=== PATIENT | female | born 1950 | race Caucasian/White ===

== ENCOUNTER 2020-07-04 12:27 | Outpatient (CLI) | payer MEDICARE, BC, SELFPAY ==
[2020-07-04 12:42] VITALS: BP 124/76; PULSE 70; RESP 14; TEMP 36.6; O2SAT 99
[2020-07-04] MEDS: Omnipaque 240 MG/ML 50 ML BTL IJ (13:12)
[2020-07-04] MEDS: Bupivacaine 0.5% Pres-Free 10 ML VIAL IJ (13:16)
--- NOTE | 2020-07-04 13:17 | DI.RAD_ITS ---
Exam(s) XR PAIN CLINIC FLUORO JOINT IN EXAM: XR PAIN CLINIC FLUORO JOINT IN CLINICAL HISTORY: Dx: Osteoarthritis of left knee. TECHNIQUE: Fluoroscopy was provided for the referring physician for guidance with performing genicul ar nerve block.. COMPARISON: No exams were available for comparison FINDINGS: Please see procedure note for details. RADIATION DOSE DELIVERED: Donr=1.52 mGy
[2020-07-04 13:20] VITALS: PULSE 78; O2SAT 100
--- NOTE | 2020-07-04 13:56 | PDOC.PAIN_ITS ---
Pain Clinic Procedure Note Procedure Note Procedure Note: LEFT GENICULAR NERVE BLOCK Date of Service: July 04, 2020 Patient: Lucy Avery Provider: Martina Morin MD Pre-operative diagnosis: left knee osteoarthritis Post-operative diagnosis: same as above COMMENTS: Pre-procedure VAS to the LEFT knee is 3/10, increases to moderate pain level with walking, aggravated by increased humidity. 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 Predominant pain localized to medial inferior aspect of the left knee. Lucy Avery has been referred to the [facility] for LEFT genicular nerve block. Lucy was interviewed and the medical record reviewed. There were no medical, pharmacologic, radiographic or other structural contraindications to attempting fluoroscopically guided LEFT genicular nerve block. Risks and potential side effects as well as potential benefit of the procedure were reviewed with Lucy , and HER voiced concerns were addressed. After I believed that the patient was completely informed, the printed consent form was signed. Standard time-out procedure was performed. Lucy was placed in the supine position on the fluoroscopy table and automated blood pressure cuff and pulse oximeter applied. The skin entry points for a pproaching LEFT superolateral genicular nerve, the superomedial genicular nerve and the inferomedial genicular was identified under the most advantageous fluoroscopic view and marked. Following thorough Chlorhexadine preparation of the skin and draping, 1% lidocaine infiltration of the skin entry point and subcutaneous tissues was accomplished using a 1.5 25G needle. Next, the 3.5 25G spinal needle was advanced to os at the location of the specific nerve root using fluoroscopic guidance. Next, 1 cc of 0.5% Bupivocaine was injected at each site. The needles were removed without difficulty. Lucy's vital signs were stable throughout the procedure and were as recorded in the docflowsheet by the nursing staff. If given, dosages of intravenous drugs for anxiolysis and analgesia were documented in MAR. Follow up plans and appointments were discussed with the Lucy . Post procedure instruction was given as documented in nursing documentation and having met discharge criteria, Lucy was discharged from the [facility]. COMMENTS: No complications. Post-procedure VAS to the LEFT knee is 0/10. The patient will keep track of her LEFT knee pain over the next four hours. If Lucy has sufficient pain relief, Godfrey will be a candidate for radiofrequency ablation at the same nerves. Isidoro SawyerJ1, Wilberto SJ, Ilya JG, Claudette JG, Siegel KONG, Park PH, Kohler JW. Radiofrequency treatment relieves chronic knee osteoarthritis pain: a double-blind randomized controlled trial. Pain. 2010;152(3):481-7. doi: 10.1016/j.pain.2010.09.029. Kalie S1, Ori ON2, Robert Y3, ?zl?yahir P2, Arron U1, Richardson ?m?rl? I. Which one is more effective for the clinical treatment of chronic pain in knee osteoarthritis: radiofrequency neurotomy of the genicular nerves or intra-articular injection? Int J Rheum Dis. 2016 Sep 21. I personally performed this entire procedure. Martina Morin MD Attending Physician
== END 2020-07-04 12:28 | disposition home or self-care (01) ==
LOC: PC 12:27
PROVIDERS: PCP Nurse Practitioner Family; Visit Provider Internal Medicine
DX: M25.562 Pain in left knee
CPT/HCPCS: 64454; 77002; Q9967

== ENCOUNTER 2020-08-10 08:06 | Outpatient (CLI) | payer MEDICARE, BC, SELFPAY ==
--- NOTE | 2020-08-10 06:00 | DI.RAD_ITS ---
Exam(s) XR PAIN CLINIC LUMBAR SP 2V EXAM: XR PAIN CLINIC LUMBAR SP 2V CLINICAL HISTORY: Dx: Lumbar Radiculopathy TECHNIQUE: 2D and realtime digital imaging was performed. Radiologist not present. CONTRAST MATERIAL: None. COMPARISON: No exams were available for comparison FINDINGS: Fluoroscopy was provided for pain management therapy. See procedure report for details. Apparently lumbar epidural steroid injection. No images supplied. Please refer to procedure report or details. Cumulative dose: malina Ochoa=4.32 mGy Fluoroscopy time 19 seconds. IMPRESSION: RADIATION DOSE DELIVERED:
[2020-08-10 07:59] VITALS: BP 148/96; PULSE 79; RESP 17; TEMP 36.6; O2SAT 98
[2020-08-10] MEDS: methylPREDNISolone ACETATE 80 MG/ML VIAL IJ (08:30)
[2020-08-10] MEDS: Omnipaque 240 MG/ML 50 ML BTL IJ (08:30)
--- NOTE | 2020-08-10 08:32 | PDOC.PAIN_ITS ---
Pain Clinic Procedure Note Procedure Note Procedure Note: Lumbar Epidural Steroid Injection Procedure Note COMMENTS: She was seen in our clinic on 07/18/2020 and had an MRI of the lumbar spine on 09/09/2019. I did review these records. She has low back pain radiating down the lateral and anterior right thigh and upper lower leg. Pre- procedure pain VAS was 3-9/10 Dx: Lumbosacral radiculopathy Lucy Avery has been referred to the [facility] for lumbar epidural steroid injection. The patient was greeted by the nurse who verified patients name and . Patient was then taken to the fluoroscopy suite. The patient was interviewed and the medial record reviewed. There were no medical, pharmacologic, radiographic, or other structural contraindications to attempting fluoroscopically guided lumbar epidural steroid injection. Risks and expected side effects as well as potential benefits of the procedure were reviewed and voiced concerns expressed. The patient consent form was signed and witnessed. Standard patient time-out procedure was performed. The patient was placed in the prone position on the fluoroscopy table and automated blood pressure cuff and pulse oximeter applied. The skin entry point for entering/approaching the epidural space at L4-L5 and marked. Following thorough chlorhexadine preparation of the skin and draping and 1% lidocaine infiltration of the skin entry point and subcutaneous tissues, a 18 gauge Touhy needle was placed under fluoroscopic guidance and with loss of resistance technique into the epidural space. Needle tip placement and depth were aided and confirmed by fluoroscopy. There was no paresthesia or return of blood or CSF through the needle. 1 cc's of Omnipaque 240 was injected with clear epidural spread confirmed with fluoroscopy. 80mg depomedrol was injected. There was not any unusual discomfort expressed by Lucy Avery. Patient's vital signs were stable throughout the procedure and were as recorded in nursing records. Follow up plans and appointments were discussed with patient. Post procedure instruction was given as documented in nursing records and having met discharge criteria and was discharged from the [facility]. COMMENTS: If this procedure is helpful, it can be completed up to 3 times per 12 months. Post-procedure pain VAS was 1/10. Duglas Dupont DO, MPH Pain Management
[2020-08-10 08:48] VITALS: BP 143/92; PULSE 104; RESP 22; O2SAT 100
== END 2020-08-10 08:07 | disposition home or self-care (01) ==
LOC: PC 08:06
PROVIDERS: PCP Nurse Practitioner Family; Visit Provider Preventive Medicine Occupational Medicine
DX: M54.17 Radiculopathy, lumbosacral region (principal)
CPT/HCPCS: 62323; 72100; J1040; Q9967

== ENCOUNTER 2020-09-28 01:51 | Outpatient (CLI) | payer MEDICARE, BC, SELFPAY ==
--- NOTE | 2020-09-28 | DI.US_ITS ---
Exam(s) US PAIN CLINIC NEEDLE GUIDANCE EXAM: DEXTROSCOLIOSIS OF LS SPINE,RT L4-5 RADICULOPATHY,RT SI JOINT DYSFUNCTION COMPARISON: No exams were available for comparison TECHNIQUE: Ultrasound performed using standard protocol. FINDINGS: Ultrasound guidance used for needle guidance region of the left knee . See procedure report for det ails. IMPRESSION: DATA REPOSITORY:
[2020-09-28 13:12] VITALS: BP 130/77; PULSE 64; RESP 20; TEMP 36.5; O2SAT 99
[2020-09-28 14:00] VITALS: PULSE 67; O2SAT 100
--- NOTE | 2020-09-28 14:01 | PDOC.PAIN_ITS ---
Pain Clinic Procedure Note Procedure Note Procedure Note: ULTRASOUND GUIDED LEFT INFRAPETELLAR NERVE BLOCK Pre-Procedural Evaluation: Lucy Avery has been referred to the [facility] for an Ultrasound Guided left infrapetellar nerve block injection for a chief complaint of left medial knee pain. Pre-procedure Pain Score: 7/10 Dx: Knee pain Patient was interviewed and the medical record reviewed. There were no medical, pharmacologic, radiographic, or other structural contraindications to preforming an ultrasound guided injection. Risks and expected side effects as well as potential benefits of the procedure were reviewed. The patient consent form was signed and witnessed. Standard time-out procedure was performed. The use of direct ultrasound visualization of the needle (rather than a non- guided injection) was required to increase patient safety by excluding inadvertent intramuscular, intratendinous, or intraneural needle placement and minimizing bleeding by avoiding osteochondral or vascular injury from the needle. Additionally, the increased accuracy of placement may increase clinical effectiveness and will allow higher diagnostic specificity when evaluating effectiveness of this injection. Procedure Description: The patient was placed in the Supine position and automated blood pressure cuff and pulse oximeter applied for monitoring during the procedure and recorded in t he medical record. Pre-injection ultrasound scanning of the area of interest was performed using a linear transducer, identifying relevant anatomy, landmarks, and neurovascular structures allowing for optimal needle path. The site was then prepared in the usual sterile fashion, using thorough Chlorhexadine preparation of the skin and sterile draping. The same ultrasound transducer was then passed into the sterile field using sterile probe cover and sterile ultrasound gel. The injection target was again visualized. Skin and subcutaneous tissues were anesthetized with 2 mL of 2% Lidocaine. A 25 guage 1.5 inch needle was placed under live ultrasound guidance, using an in- plane approach, to the target area. After visualization of the needle tip at the target area, a mixture of 3 mL 2% Lidocaine and 1 cc of Dexamethasone (10 mg/cc), totaling 4 mL of injectate was delivered after negative aspiration for blood. Ultrasound images were captured and stored for documentation purposes. Post-procedure Pain Score: 0/10 Vital signs were stable throughout the procedure and were as recorded in the docflowsheet by the nursing staff. Follow up plans and appointments were discussed with the patient.Post procedure instruction was given as documented in nursing documentation and having met discharge criteria, they were discharged from the [facility]. COMMENTS: She did well with the procedure. Duglas Dupont DO, MPH Pain Management
[2020-09-28] MEDS: Lidocaine 2% Pres-Free 5 ML VIAL IJ (14:02)
[2020-09-28] MEDS: Dexamethasone Sod. Phos./Pres-Free 10 MG/ML VIAL IJ (14:02)
== END 2020-09-28 02:11 ==
PROVIDERS: PCP Nurse Practitioner Family; Visit Provider Preventive Medicine Occupational Medicine
DX: M25.562 Pain in left knee (principal)
CPT/HCPCS: 64450; 76942

== ENCOUNTER 2021-04-25 13:11 | Outpatient (CLI) | payer MEDICARE, BC, SELFPAY ==
--- NOTE | 2021-04-25 06:00 | DI.RAD_ITS ---
Exam(s) XR PAIN CLINIC SACRIOILIAC 2V EXAM: XR PAIN CLINIC SACRIOILIAC 2V CLINICAL HISTORY: Dx: SI joint Dysfunction/Lumbar Spondylosis. TECHNIQUE: 2D and realtime digital imaging was performed. CONTRAST MATERIAL: None COMPARISON: None FINDINGS: Fluoroscopy was provided during pain management therapy. Please refer to procedure report for detail s. IMPRESSION: As above. Total fluoroscopy time 88 seconds Cumulative dose= 12.23mGy RADIATION DOSE DELIVERED: Kar= mGy
[2021-04-25 13:26] VITALS: BP 146/80; PULSE 69; RESP 18; TEMP 36.5; O2SAT 100
[2021-04-25] MEDS: fentaNYL 100 MCG/2 ML VIAL IVP ×2 (13:59→14:05)
[2021-04-25] MEDS: Lactated Ringers 1,000 ML 80 ML IV (14:00)
[2021-04-25] MEDS: Midazolam 2 MG/2 ML VIAL IVP (14:00)
--- NOTE | 2021-04-25 15:06 | PDOC.PAIN_ITS ---
Pain Clinic Procedure Note Procedure Note Procedure Note: RIGHT SACROLATERAL BRANCH NERVE RADIOFREQUENCY ABLATION WITH THE COOLIEF MACHINE Date of Service: April 25, 2021 Patient: Lucy Avery Provider: Duglas Dupont DO, MPH Pre-operative diagnosis: Sacroiliac joint dysfunction Post-operative diagnosis: Same Pre-operative pain VAS: 8/10. COMMENTS: Previous sacrolateral branch nerve block to the RIGHT sacroiliac joint area. Lucy Avery has been referred to the [facility] for RIGHT sacrolateral branch nerve radiofrequency ablation. Lucy was interviewed and the medical record reviewed. There were no medical, pharmacologic, radiographic or other structural contraindications to attempting fluoroscopically guided RIGHT sacrolateral branch nerve radiofrequency ablation. Risks and potential side effects as well as potential benefit of the procedure were reviewed with Lucy Avery , and HER voiced concerns were addressed. After I believed that the patient was completely informed, the printed consent form was signed. Standard time-out procedure was performed. Lucy was placed in the prone position on the fluoroscopy table and automated blood pressure cuff and pulse oximeter applied. The skin entry points for approaching RIGHT L5DR, and the lateral 50% of the right S1, S2 and S3 foramen was identified under the most advantageous fluoroscopic view and marked. Following thorough Chlorhexadine preparation of the skin and draping, 1% lid ocaine infiltration of the skin entry point and subcutaneous tissues was accomplished using a 1.5 25G needle. Next, the 75mm 18G RF Cannula with a 4 mm active tip was advanced to os at the location of the specific sensory nerve areas using fluoroscopic guidance. Next, sensory and motor testing was performed and no abnormal findings were found. Next, 1 cc of 2% Lidocaine was injected at each site. The lesion was then created with 80 degrees C for 150 seconds. A total of 1 cc of Depomedrol (40 mg/cc) was spread out between all sites followed by 0.5 cc of 0.5% Bupivacaine to each sensory nerve area as the needle was withdrawn. The needles were removed without difficulty. Lucy's vital signs were stable throughout the procedure and were as recorded in the docflowsheet by the nursing staff. If given, dosages of intravenous drugs for anxiolysis and analgesia were documented in MAR. Follow up plans and appointments were discussed with the Lucy Avery . Post procedure instruction was given as documented in nursing documentation and having met discharge criteria, Lucy was discharged from the [facility]. COMMENTS: No complications. Post-procedure pain VAS was 0/10. F/U with our office as needed. I personally performed this entire procedure. Duglas Dupont DO, MPH Attending Physician [facility]
[2021-04-25] MEDS: Bupivacaine 0.5% Pres-Free 10 ML VIAL IJ (15:14)
[2021-04-25] MEDS: methylPREDNISolone ACETATE 40 MG/ML VIAL IJ (15:14)
[2021-04-25] MEDS: Lidocaine 1% Pres-Free 30 ML VIAL IJ (15:15)
[2021-04-25] MEDS: Lidocaine 2% Pres-Free 5 ML VIAL IJ (15:15)
== END 2021-04-25 13:12 | disposition home or self-care (01) ==
LOC: PC 13:12
PROVIDERS: PCP Internal Medicine; Visit Provider Preventive Medicine Occupational Medicine
DX: M53.3 Sacrococcygeal disorders, not elsewhere classified (principal)
CPT/HCPCS: 64640; 72200; J1030; J2250; J3010

== ENCOUNTER 2023-05-08 12:36 | Outpatient (CLI) | payer MEDICARE, BC, SELFPAY ==
[2023-05-08 12:47] VITALS: BP 130/84; PULSE 61; RESP 20; TEMP 36.6; O2SAT 96
--- NOTE | 2023-05-08 13:17 | PDOC.PAIN_ITS ---
Date of service: 05/08/23 Time of Service: 13:18 Pain Managment Procedure Note Procedure Note Procedure Note: PROCEDURE NOTE RIGHT INTRA-ARTICULAR SACROILIAC JOINT INJECTION Date of Service: May 08, 2023 Patient: Lucy Avery Provider: Duglas Dupont DO, MPH COMMENTS: I previously evaluated the patient in the office and their symptoms in relation to the sacroiliac joint pain have remained the same. Pre-operative diagnosis: Sacroiliac joint dysfunction Post-operative diagnosis: Same Pre-procedure pain: VAS= 6/10 Lucy Avery has been referred to our [facility] for a Right intra-articular Sacroiliac joint injection. Lucy was interviewed and the medical record reviewed. There were no medical, pharmacologic, radiographic or other structural contraindications to attempting a fluoroscopically-guided, contrast-enhanced, intra-articular Sacroiliac joint injection. The risks, benefits, and potential side effects of this procedure were reviewed with the patient. Questions and concerns were addressed. After it was clear that Lucy was fully informed about the procedure, the printed consent form was signed by the patient and myself. Lucy was placed in the prone position on the fluoroscopy table and an automated blood pressure cuff, 3 lead EKG, and pulse oximeter were applied. The skin entry point for approaching the Right sacroiliac joint was identified under the most advantageous fluoroscopic view and marked. Following thorough Chlorhexadine preparation of the skin and draping with sterile surgical drapes, 2 mls of 1% lidocaine was infiltrated into the skin at the entry point and the surrounding subcutaneous tissues. Next, a 3.5 22G spinal needle was placed under fluoroscopic guidance into the Right sacroiliac joint. Intra-articular placement was confirmed by a clear arthrogram resulting from the injection of 0.25ml of Omnipaque-240. Next, 1 ml of Depo- Medrol 80 mg/ml was injected intra- articularly with an initial reproduction of a significant component of the usual pain. This was followed with 1 ml of 1% Lidocaine. The needle was then removed without difficulty. (49 ml of Omnipaque-240 was wasted). Lucy's vital signs were stable throughout the procedure and were as recorded in nursing records. Follow up plans and appointments were discussed with Lucy. Post procedure instructions were given as documented in nursing records. Having met discharge criteria, Lucy was discharged from the [facility]. COMMENTS: Post-procedure pain: VAS= 0/10. If the patient receives at least 50% improvement in pain and/or function for at least 3 months, this procedure can be repeated if needed. I personally performed this entire procedure. DUGLAS DUPONT DO, MPH ABPMR-subspecialty board certification in Pain Medicine [facility]
[2023-05-08] MEDS: methylPREDNISolone ACETATE 80 MG/ML VIAL IJ (13:20)
[2023-05-08] MEDS: Omnipaque 240 MG/ML 50 ML BTL IJ (13:20)
[2023-05-08] MEDS: Nerve Block Tray 1 EACH MC (13:20)
--- NOTE | 2023-05-08 13:20 | DI.RAD_ITS ---
Exam(s) XR PAIN CLINIC SACRIOILIAC 2V EXAM: XR PAIN CLINIC SACRIOILIAC 2V CLINICAL HISTORY: DX: Sacroilic Dysfunction TECHNIQUE: 2D and realtime digital imaging was performed. CONTRAST MATERIAL: Refer to procedure report. COMPARISON: No exams were available for comparison FINDINGS: Fluoroscopy was provided for Dr. Dupont during the performance of a right sacroiliac joint injection. Please refer to the procedure report for complete details. Ka,r=3.38 mGy IMPRESSION: RADIATION DOSE DELIVERED: 0.0 0.0 0
[2023-05-08 13:21] VITALS: BP 142/87; PULSE 71; RESP 20; O2SAT 100
== END 2023-05-08 12:37 | disposition home or self-care (01) ==
LOC: PC 12:36
PROVIDERS: PCP Internal Medicine; Visit Provider Preventive Medicine Occupational Medicine
DX: M54.50 Low back pain, unspecified (principal); M46.1 Sacroiliitis, not elsewhere classified
CPT/HCPCS: 00123; 27096; 72200; J1040; Q9967

== ENCOUNTER 2023-12-03 14:33 | Outpatient (CLI) | payer MEDICARE, BC, SELFPAY ==
--- NOTE | 2023-12-03 06:00 | DI.RAD_ITS ---
Exam(s) XR PAIN CLINIC SACRIOILIAC 2V EXAM: XR PAIN CLINIC SACRIOILIAC 2V CLINICAL HISTORY: DX: Sacroiliac Dysfunction TECHNIQUE: 2D and realtime digital imaging was performed. CONTRAST MATERIAL: Refer to procedure report. COMPARISON: No exams were available for comparison FINDINGS: Fluoroscopy was provided for Dr. Dupont during the performance of a right sacroiliac joint injection. Please refer to the procedure report for complete details. Ka,r=4.3 mGy IMPRESSION: RADIATION DOSE DELIVERED: 0.0 0.0 0
[2023-12-03 14:51] VITALS: BP 109/83; PULSE 65; RESP 18; TEMP 36.6; O2SAT 98
[2023-12-03 15:19] VITALS: O2SAT 99
[2023-12-03 15:20] VITALS: PULSE 76; RESP 16; O2SAT 97
[2023-12-03 15:22] VITALS: BP 129/83; PULSE 72; PULSE 74; RESP 16; O2SAT 96
[2023-12-03] MEDS: methylPREDNISolone ACETATE 80 MG/ML VIAL IJ (15:38)
[2023-12-03] MEDS: Nerve Block Tray 1 EACH MC (15:38)
[2023-12-03] MEDS: Omnipaque 240 MG/ML 50 ML BTL IJ (15:38)
--- NOTE | 2023-12-03 15:54 | PDOC.PAIN ---
Date of service: 12/03/23 Time of Service: 15:54 Pain Managment Procedure Note Procedure Note Procedure Note: PROCEDURE NOTE RIGHT INTRA-ARTICULAR SACROILIAC JOINT INJECTION Date of Service: December 03, 2023 Patient: Lucy Avery Provider: Duglas Dupont DO, MPH COMMENTS: I previously evaluated the patient in the office and their symptoms in relation to the sacroiliac joint pain have remained the same. Pre-operative diagnosis: Sacroiliac joint dysfunction ICD-10 M53.3 Post-operative diagnosis: Same Pre-procedure pain: VAS= 7/10 Lucy Avery has been referred to our [facility] for a Right intra-articular Sacroiliac joint injection. Lucy was interviewed and the medical record reviewed. There were no medical, pharmacologic, radiographic or other structural contraindications to attempting a fluoroscopically-guided, contrast-enhanced, intra-articular Sacroiliac joint injection. The risks, benefits, and potential side effects of this procedure were reviewed with the patient. Questions and concerns were addressed. After it was clear that Lucy was fully informed about the procedure, the printed consent form was signed by the patient and myself. Lucy was placed in the prone position on the fluoroscopy table and an automated blood pressure cuff, 3 lead EKG, and pulse oximeter were applied. The skin entry point for approaching the Right sacroiliac joint was identified under the most advantageous fluoroscopic view and marked. Following thorough Chlorhexadine preparation of the skin and draping with sterile surgical drapes, 2 mls of 1% lidocaine was infiltrated into the skin at the entry point and the surrounding subcutaneous tissues. Next, a 3.5 22G spinal needle was placed under fluoroscopic guidance into the Right sacroiliac joint. Intra-articular placement was confirmed by a clear arthrogram resulting from the injection of 0.25ml of Omnipaque-240. Significant care was taken to avoid the implanted stimulator. My needle was far away from the IPG and lead wire. Next, 1 ml of Depo- Medrol 80 mg/ml was injected intra-articularly with an initial reproduction of a significant component of the usual pain. This was followed with 1 ml of 1% Lidocaine. The needle was then removed without difficulty. (49 ml of Omnipaque-240 was wasted). Lucy's vital signs were stable throughout the procedure and were as recorded in nursing records. Follow up plans and appointments were discussed with Lucy. Post procedure instructions were given as documented in nursing records. Having met discharge criteria, Lucy was discharged from the [facility]. COMMENTS: Post-procedure pain: VAS= 0/10. If the patient receives at least 50% improvement in pain and/or function for at least 3 months, this procedure can be repeated if needed. I personally performed this entire procedure. DUGLAS DUPONT DO, MPH ABPMR-subspecialty board certification in Pain Medicine [facility]
== END 2023-12-03 14:34 | disposition home or self-care (01) ==
LOC: PC 14:33
PROVIDERS: PCP Internal Medicine; Visit Provider Preventive Medicine Occupational Medicine
DX: M54.50 Low back pain, unspecified (principal); M53.3 Sacrococcygeal disorders, not elsewhere classified
CPT/HCPCS: 27096; 72200; J1010; Q9967